=== PATIENT | male | born 1960 | race Caucasian/White ===

== ENCOUNTER → 2016-08-19 | Outpatient (REF) | payer MEDICARE, OTHER ==
[2016-08-19 18:59] LABS: ALBUMIN 3.1 GM/DL (3.2-5.2); ALBUMIN/GLOBULIN RATIO 0.82 (1.00-1.93); ALKALINE PHOSPHATASE 66 U/L (45-117); ALT/SGPT 38 U/L (12-78); ANION GAP 9 MEQ/L (8-16); AST/SGOT 35 U/L (15-37); BILIRUBIN,TOTAL 0.5 MG/DL (0.2-1.0); BLOOD UREA NITROGEN 6 MG/DL (7-18); CALCIUM LEVEL 8.4 MG/DL (8.5-10.1); CARBON DIOXIDE LEVEL 29 MEQ/L (21-32); CHLORIDE LEVEL 99 MEQ/L (98-107); CHOLESTEROL LEVEL 147 MG/DL (<200); CREATININE FOR GFR 0.96 MG/DL (0.70-1.30); GLOMERULAR FILTRATION RATE > 60.0 (>56); GLUCOSE, FASTING 172 MG/DL (70-105); POTASSIUM SERUM 3.9 MEQ/L (3.5-5.1); SODIUM LEVEL 137 MEQ/L (136-145); TOTAL PROTEIN 6.9 GM/DL (6.4-8.2); TRIGLYCERIDES LEVEL 417 MG/DL (<150)
== END ==
LOC: M LAB REF 16:46
PROVIDERS: ATTEND Family Medicine Addiction Medicine
DX: M25.561 Pain in right knee (principal); Z79.899 Other long term (current) drug therapy

== ENCOUNTER → 2016-12-03 | Outpatient (REF) | payer MEDICARE, OTHER ==
[2016-12-03 19:28] LABS: ANION GAP 7 MEQ/L (8-16); BLOOD UREA NITROGEN 8 MG/DL (7-18); CARBON DIOXIDE LEVEL 29 MEQ/L (21-32); CHLORIDE LEVEL 103 MEQ/L (98-107); CHOLESTEROL LEVEL 155 MG/DL (<200); CREATININE FOR GFR 1.03 MG/DL (0.70-1.30); GLOMERULAR FILTRATION RATE > 60.0 (>56); GLUCOSE, FASTING 125 MG/DL (70-105); POTASSIUM SERUM 4.5 MEQ/L (3.5-5.1); SODIUM LEVEL 139 MEQ/L (136-145); TRIGLYCERIDES LEVEL 258 MG/DL (<150)
[2016-12-03 20:30] LABS: BASO % 0.7 % (0.0-1.0); EOS # 0.3 K/mm3 (0.0-0.50); EOS % 5.4 % (0.0-3.0); LARGE UNSTAINED CELL # 0.1 K/mm3 (0.0-0.4); LARGE UNSTAINED CELL % 2.5 % (0.0-4.0); LYMPH # 1.4 K/mm3 (1.5-4.5); MEAN CORPUSCULAR HGB CONC 33.4 g/dl (32.0-36.5); MEAN CORPUSCULAR VOLUME 89.6 fl (80.0-96.0); MONO # 0.5 K/mm3 (0.0-0.8); MONO % 8.5 % (0.0-5.0); PLATELET COUNT, AUTOMATED 125 k/mm3 (150-450); RED CELL DISTRIBUTION WIDTH 13.9 % (11.5-14.5); WHITE BLOOD COUNT 5.3 K/mm3 (4.0-10.0)
== END ==
LOC: M LAB REF 17:20
PROVIDERS: ATTEND Internal Medicine Cardiovascular Disease
DX: Z01.818 Encounter for other preprocedural examination (principal); I48.91 Unspecified atrial fibrillation; I10 Essential (primary) hypertension

== ENCOUNTER → 2016-12-18 | Outpatient (REF) | payer MEDICARE, OTHER ==
[2016-12-19 13:21] LABS: ANION GAP 8 MEQ/L (8-16); BLOOD UREA NITROGEN 8 MG/DL (7-18); CALCIUM LEVEL 9.1 MG/DL (8.5-10.1); CARBON DIOXIDE LEVEL 30 MEQ/L (21-32); CHLORIDE LEVEL 102 MEQ/L (98-107); CREATININE FOR GFR 1.15 MG/DL (0.70-1.30); GLOMERULAR FILTRATION RATE > 60.0 (>56); GLUCOSE, FASTING 201 MG/DL (70-105); POTASSIUM SERUM 4.6 MEQ/L (3.5-5.1); SODIUM LEVEL 140 MEQ/L (136-145)
[2016-12-19 13:58] LABS: ADD MANUAL DIFFER YES; MEAN CORPUSCULAR HGB CONC 33.3 g/dl (32.0-36.5); PLATELET COUNT, AUTOMATED 147 k/mm3 (150-450)
[2016-12-19 14:48] LABS: BASOPHILS 4 % (0-4); EOSINOPHILS 10 % (0-5)
[2016-12-19 14:49] LABS: ANISOCYTOSIS 1+
== END ==
LOC: M LAB REF 12:13
PROVIDERS: ATTEND Internal Medicine Cardiovascular Disease
DX: Z01.818 Encounter for other preprocedural examination (principal); R07.89 Other chest pain

== ENCOUNTER → 2016-12-30 | Outpatient (CLI) | payer MEDICARE, BC, OTHER ==
--- NOTE | 2016-12-30 14:34 | REP ---
Ultrasonography of the palpable lump in the upper right thigh: Ultrasonography of the palpable lump in the upper right thigh is performed. There are normal appearing soft tissues. There is no nodule, mass, cyst, foreign body or other abnormality identified by ultrasound. Impression: Negative right thigh ultrasound. Signed by Dmitri Benson MD 12/30/2016 02:25 P
== END ==
LOC: M RAD 13:34
PROVIDERS: ATTEND Family Medicine Addiction Medicine
DX: R22.9 Localized swelling, mass and lump, unspecified (principal)

== ENCOUNTER → 2017-06-01 | Outpatient (REF) | payer MEDICARE, BC, OTHER ==
[2017-06-01 12:57] LABS: ALBUMIN 3.1 GM/DL (3.2-5.2); ALBUMIN/GLOBULIN RATIO 0.79 (1.00-1.93); ALKALINE PHOSPHATASE 69 U/L (45-117); ALT/SGPT 20 U/L (12-78); ANION GAP 5 MEQ/L (8-16); AST/SGOT 15 U/L (7-37); BILIRUBIN,TOTAL 0.6 MG/DL (0.2-1.0); BLOOD UREA NITROGEN 11 MG/DL (7-18); CALCIUM LEVEL 8.5 MG/DL (8.5-10.1); CARBON DIOXIDE LEVEL 32 MEQ/L (21-32); CHLORIDE LEVEL 104 MEQ/L (98-107); CHOLESTEROL LEVEL 140 MG/DL (<200); CHOLESTEROL RISK RATIO 4.375 (<5); CREATININE FOR GFR 1.02 MG/DL (0.70-1.30); GLOMERULAR FILTRATION RATE > 60.0 (>56); GLUCOSE, FASTING 98 MG/DL (70-105); HDL CHOLESTEROL 32 MG/DL (>40); NON-HDL-C 108 MG/DL; POTASSIUM SERUM 4.3 MEQ/L (3.5-5.1); SODIUM LEVEL 141 MEQ/L (136-145); TRIGLYCERIDES LEVEL 240 MG/DL (<150)
[2017-06-01 15:02] LABS: ESTIMATED AVERAGE GLUCOSE 151 MG/DL (60-110); HEMOGLOBIN A1c 6.9 %
== END ==
LOC: M LAB REF 12:00
DX: E78.1 Pure hyperglyceridemia (principal)
CPT/HCPCS: 84443

== ENCOUNTER 2017-10-29 11:12 | Emergency (ER) | payer MEDICARE, BC, OTHER ==
[2017-10-29] MEDS: CEFTAROLINE FOSAMIL 600 MG in D5W MINI-BAG PLUS 50 ML IV (13:48)
[2017-10-29 13:52] LABS: BASO % 0.5 % (0.0-1.0); EOS # 0.3 10^3/uL (0.0-0.50); EOS % 3.5 % (0.0-3.0); HEMATOCRIT 32.4 % (42.0-52.0); HEMOGLOBIN 10.8 g/dl (13.5-17.5); IMMATURE GRANULOCYTE % 0.6 % (0-3.0); LYMPH # 1.4 10^3/uL (1.5-4.5); MEAN CORPUSCULAR HEMOGLOBIN 28.6 pg (27.0-33.0); MEAN CORPUSCULAR HGB CONC 33.3 g/dl (32.0-36.5); MEAN CORPUSCULAR VOLUME 85.9 fl (80.0-96.0); MONO % 12.5 % (0.0-5.0); NEUTROPHILS # 5.3 10^3/uL (1.8-7.7); NEUTROPHILS % 65.9 % (36.0-66.0); PLATELET COUNT, AUTOMATED 156 10^3/uL (150-450); RED BLOOD COUNT 3.77 10^6/uL (4.30-6.10); RED CELL DISTRIBUTION WIDTH 14.6 % (11.5-14.5)
[2017-10-29 13:53] LABS: KETONE, URINE AUTO RFX NEGATIVE (NEGATIVE); LEUKOCYTE ESTERASE UR AUTO RFX NEGATIVE (NEGATIVE); NITRITE, URINE AUTO RFX NEGATIVE (NEGATIVE); RBC, URINE AUTO RFX 0 /HPF (0-3); SPECIFIC GRAVITY UR AUTO RFX 1.003 (1.002-1.035); SQUAM EPITHELIAL CELL UR AURFX 0 /HPF (0-6); WBC, URINE AUTO RFX 0 /HPF (0-3)
[2017-10-29 14:12] LABS: LACTIC ACID SEPSIS PROTOCOL 1.6 MMOL/L (0.4-2.0)
[2017-10-29 14:21] LABS: ERYTHROCYTE SEDIMENTATION RATE 85 mm/hr (0-20)
[2017-10-29 14:22] LABS: ANION GAP 5 MEQ/L (8-16); BLOOD UREA NITROGEN 7 MG/DL (7-18); C REACTIVE PROTEIN QUANTITATIV 7.63 MG/DL (0.00-0.30); CALCIUM LEVEL 8.4 MG/DL (8.5-10.1); CARBON DIOXIDE LEVEL 30 MEQ/L (21-32); CHLORIDE LEVEL 104 MEQ/L (98-107); CREATININE FOR GFR 1.01 MG/DL (0.70-1.30); GLOMERULAR FILTRATION RATE > 60.0 (>56); GLUCOSE, FASTING 183 MG/DL (70-100); SODIUM LEVEL 139 MEQ/L (136-145)
[2017-10-29 15:13] LABS: ESTIMATED AVERAGE GLUCOSE 146 MG/DL (60-110); HEMOGLOBIN A1c 6.7 %
== END 2017-10-29 15:49 | disposition home or self-care (01) ==
LOC: M ED 11:12
DX: L03.116 Cellulitis of left lower limb (principal); E11.9 Type 2 diabetes mellitus without complications; I48.91 Unspecified atrial fibrillation; G47.33 Obstructive sleep apnea (adult) (pediatric); Z98.890 Other specified postprocedural states; Z79.01 Long term (current) use of anticoagulants; Z87.891 Personal history of nicotine dependence; Z79.899 Other long term (current) drug therapy
CPT/HCPCS: J0712

== ENCOUNTER → 2017-11-03 | Outpatient (CLI) | payer MEDICARE, BC, OTHER ==
[~2017-11-03] MED LIST: PROHANCE 279.3MG/ML 15ML VIAL (A9576) As Ordered; PROHANCE 279.3MG/ML 5ML VIAL (A9576) As Ordered
== END ==
LOC: M RAD 16:34
DX: E13.622 Other specified diabetes mellitus with other skin ulcer (principal)
CPT/HCPCS: A9576

== ENCOUNTER → 2017-12-28 | Outpatient (CLI) | payer MEDICARE, BC, OTHER | LOC: M RAD 07:46 | DX: L97.422 Non-pressure chronic ulcer of left heel and midfoot with fat layer exposed (principal) | CPT/HCPCS: 93926 ==

== ENCOUNTER → 2018-09-03 | Outpatient (CLI) | payer MEDICARE, BC, OTHER ==
[~2018-09-03] MED LIST changes: +ALPR0.25; +AMIT100TA; +CART240C3; +CEFD1CAP8; +CLEO300C2 PO; +DIGO0.25; +FENO145T13; +FURO40TA2; +GLIM4TAB; +JANU100T; +METF10004; +METO100T5; +OMEP20CA3; +PRAD150C6; -PROHANCE 279.3MG/ML 15ML VIAL (A9576) As Ordered; -PROHANCE 279.3MG/ML 5ML VIAL (A9576) As Ordered
--- NOTE | 2018-09-03 19:12 | REP ---
Soft-tissue ultrasound of the anterior chest. History: Congenital deformity of the chest. Palpable abnormality. Findings: Scanning is performed over the area of the palpable abnormality in the lower chest anterior midline. The palpable abnormality is seen to be due to a prominent xyphoid process cartilage which is anteriorly oriented. No other abnormality. Electronically Signed by Andrez Nguyễn MD 09/03/2018 08:16 P
== END ==
LOC: M RAD 16:43
PROVIDERS: ATTEND Surgery
DX: Q67.8 Other congenital deformities of chest (principal)

== ENCOUNTER → 2019-05-09 | Outpatient (REF) | payer MEDICARE, OTHER ==
[~2019-05-09] MED LIST changes: -DIGO0.25; +DIGO0.253; -GLIM4TAB; +GLIM4TAB3; +OMEP-172; -OMEP20CA3
[2019-05-09 18:45] LABS: BASO # 0.1 10^3/uL (0.0-0.2); BASO % 0.6 % (0.0-1.0); EOS # 0.4 10^3/uL (0.0-0.5); EOS % 4.4 % (0.0-3.0); HEMATOCRIT 35.1 % (42.0-52.0); HEMOGLOBIN 11.4 g/dl (13.5-17.5); LYMPH % 22.5 % (24.0-44.0); MEAN CORPUSCULAR HEMOGLOBIN 28.5 pg (27.0-33.0); MEAN CORPUSCULAR HGB CONC 32.5 g/dl (32.0-36.5); MEAN CORPUSCULAR VOLUME 87.8 fl (80.0-96.0); MONO # 0.7 10^3/uL (0.0-0.8); MONO % 7.6 % (0.0-5.0); NEUTROPHILS # 5.5 10^3/uL (1.5-8.5); NEUTROPHILS % 63.5 % (36.0-66.0); PLATELET COUNT, AUTOMATED 208 10^3/uL (150-450); WHITE BLOOD COUNT 8.7 10^3/uL (4.0-10.0)
[2019-05-09 19:10] LABS: HEMOGLOBIN A1c 5.8 %
[2019-05-09 19:19] LABS: BILIRUBIN,TOTAL 0.3 MG/DL (0.2-1.0); CALCIUM LEVEL 8.8 MG/DL (8.5-10.1); CHOLESTEROL RISK RATIO 4.702 (<5); CREATININE FOR GFR 1.35 MG/DL (0.70-1.30); FREE T4 0.93 NG/DL (0.76-1.46); POTASSIUM SERUM 4.6 MEQ/L (3.5-5.1); THYROID STIMULATING HORMONE 3.91 uIU/ML (0.358-3.740); TOTAL PROTEIN 7.4 GM/DL (6.4-8.2)
== END ==
LOC: M LAB REF 18:08
PROVIDERS: ATTEND Nurse Practitioner Family
DX: Z00.01 Encounter for general adult medical examination with abnormal findings (principal); Z79.84 Long term (current) use of oral hypoglycemic drugs; Z79.899 Other long term (current) drug therapy

== ENCOUNTER → 2019-12-07 | Outpatient (REF) | payer MEDICARE, OTHER ==
[~2019-12-07] MED LIST changes: -FENO145T13; +FENO145T7; -GLIM4TAB3; +GLIM4TAB5; -OMEP-172; +OMEP1CAP73
[2019-12-07 17:25] LABS: BASO % 0.7 % (0.0-1.0); EOS # 0.3 10^3/uL (0.0-0.5); HEMOGLOBIN 10.7 g/dl (13.5-17.5); LYMPH # 1.5 10^3/uL (1.5-5.0); LYMPH % 26.5 % (24.0-44.0); MEAN CORPUSCULAR HEMOGLOBIN 28.2 pg (27.0-33.0); MEAN CORPUSCULAR HGB CONC 31.5 g/dl (32.0-36.5); MEAN CORPUSCULAR VOLUME 89.7 fl (80.0-96.0); MONO # 0.7 10^3/uL (0.0-0.8); MONO % 11.6 % (0.0-5.0); NEUTROPHILS # 3.1 10^3/uL (1.5-8.5); NEUTROPHILS % 54.7 % (36.0-66.0); PLATELET COUNT, AUTOMATED 177 10^3/uL (150-450); RED BLOOD COUNT 3.79 10^6/uL (4.30-6.10); WHITE BLOOD COUNT 5.7 10^3/uL (4.0-10.0)
[2019-12-07 17:43] LABS: ALBUMIN 3.1 GM/DL (3.2-5.2); ALT/SGPT 13 U/L (12-78); BILIRUBIN,TOTAL 0.4 MG/DL (0.2-1.0); BLOOD UREA NITROGEN 13 MG/DL (7-18); CALCIUM LEVEL 8.9 MG/DL (8.5-10.1); CARBON DIOXIDE LEVEL 30 MEQ/L (21-32); CHLORIDE LEVEL 105 MEQ/L (98-107); CHOLESTEROL LEVEL 152 MG/DL (<200); CHOLESTEROL RISK RATIO 5.066 (<5); CREATININE FOR GFR 1.25 MG/DL (0.70-1.30); FREE T4 1.16 NG/DL (0.76-1.46); GLOMERULAR FILTRATION RATE > 60.0 (>56); GLUCOSE, FASTING 174 MG/DL (70-100); HDL CHOLESTEROL 30 MG/DL (>40); LDL CHOLESTEROL 78 MG/DL (<100); NON-HDL-C 122 MG/DL; SODIUM LEVEL 142 MEQ/L (136-145); TOTAL 25(OH) VITAMIN D 33.3 NG/ML (30.0-100.0); TOTAL PROTEIN 7.1 GM/DL (6.4-8.2); TRIGLYCERIDES LEVEL 220 MG/DL (<150)
[2019-12-07 18:55] LABS: APPEARANCE, URINE CLEAR (CLEAR); BACTERIA, URINE AUTO NEGATIVE (NEGATIVE); BILIRUBIN, URINE AUTO NEGATIVE (NEGATIVE); BLOOD, URINE BLOOD NEGATIVE (NEGATIVE); COLOR, URINE YELLOW (YELLOW); GLUCOSE, URINE (UA) AUTO NEGATIVE (NEGATIVE); KETONE, URINE AUTO NEGATIVE (NEGATIVE); LEUKOCYTE ESTERASE, URINE AUTO NEGATIVE (NEGATIVE); MUCUS, URINE SMALL (NEGATIVE); NITRITE, URINE AUTO NEGATIVE (NEGATIVE); PROTEIN, URINE AUTO 2+ mg/dL (NEGATIVE); RBC, URINE AUTO 2 /HPF (0-3); SPECIFIC GRAVITY URINE AUTO 1.016 (1.002-1.035); SQUAMOUS EPITHELIAL CELL UR AU 0 /HPF (0-6); UROBILINOGEN, URINE AUTO 0.2 mg/dL (0.0-2.0); WBC, URINE AUTO 0 /HPF (0-3)
[2019-12-07 20:07] LABS: HEMOGLOBIN A1c 5.5 %
== END ==
LOC: M LAB REF 16:21
PROVIDERS: ATTEND Nurse Practitioner Family
DX: K21.9 Gastro-esophageal reflux disease without esophagitis (principal); E11.9 Type 2 diabetes mellitus without complications; G47.00 Insomnia, unspecified; I11.0 Hypertensive heart disease with heart failure; I48.91 Unspecified atrial fibrillation; I50.9 Heart failure, unspecified; Z79.899 Other long term (current) drug therapy

== ENCOUNTER → 2019-12-14 | Outpatient (REF) | payer MEDICARE, OTHER ==
[2019-12-15 11:04] LABS: APPEARANCE, URINE CLEAR (CLEAR); BACTERIA, URINE AUTO NEGATIVE (NEGATIVE); BILIRUBIN, URINE AUTO NEGATIVE (NEGATIVE); BLOOD, URINE BLOOD NEGATIVE (NEGATIVE); COLOR, URINE YELLOW (YELLOW); GLUCOSE, URINE (UA) AUTO NEGATIVE (NEGATIVE); KETONE, URINE AUTO NEGATIVE (NEGATIVE); LEUKOCYTE ESTERASE, URINE AUTO NEGATIVE (NEGATIVE); NITRITE, URINE AUTO NEGATIVE (NEGATIVE); PROTEIN, URINE AUTO 2+ mg/dL (NEGATIVE); RBC, URINE AUTO 1 /HPF (0-3); SQUAMOUS EPITHELIAL CELL UR AU 0 /HPF (0-6); UROBILINOGEN, URINE AUTO 0.2 mg/dL (0.0-2.0); WBC, URINE AUTO 0 /HPF (0-3)
== END ==
LOC: M LAB REF 09:27
PROVIDERS: ATTEND Nurse Practitioner Family
DX: R80.9 Proteinuria, unspecified (principal); E11.9 Type 2 diabetes mellitus without complications; I10 Essential (primary) hypertension

== ENCOUNTER → 2020-07-05 | Outpatient (REF) | payer MEDICARE, OTHER ==
[2020-07-05 19:31] LABS: BASO # 0.1 10^3/uL (0.0-0.2); BASO % 0.7 % (0.0-1.0); EOS # 0.5 10^3/uL (0.0-0.5); EOS % 6.2 % (0.0-3.0); HEMATOCRIT 32.1 % (42.0-52.0); HEMOGLOBIN 10.1 g/dl (13.5-17.5); LYMPH # 1.2 10^3/uL (1.5-5.0); LYMPH % 15.6 % (24.0-44.0); MEAN CORPUSCULAR HEMOGLOBIN 27.8 pg (27.0-33.0); MEAN CORPUSCULAR HGB CONC 31.5 g/dl (32.0-36.5); MEAN CORPUSCULAR VOLUME 88.4 fl (80.0-96.0); MONO # 0.7 10^3/uL (0.0-0.8); NEUTROPHILS # 5.1 10^3/uL (1.5-8.5); PLATELET COUNT, AUTOMATED 157 10^3/uL (150-450); RED BLOOD COUNT 3.63 10^6/uL (4.30-6.10); WHITE BLOOD COUNT 7.5 10^3/uL (4.0-10.0)
[2020-07-05 19:41] LABS: ALBUMIN 2.9 GM/DL (3.2-5.2); ALT/SGPT 14 U/L (12-78); BILIRUBIN,TOTAL 0.5 MG/DL (0.2-1.0); BLOOD UREA NITROGEN 10 MG/DL (7-18); CALCIUM LEVEL 8.3 MG/DL (8.5-10.1); CARBON DIOXIDE LEVEL 31 MEQ/L (21-32); CHLORIDE LEVEL 107 MEQ/L (98-107); CHOLESTEROL LEVEL 157 MG/DL (<200); CHOLESTEROL RISK RATIO 4.025 (<5); CREATININE FOR GFR 1.19 MG/DL (0.70-1.30); FREE T4 0.99 NG/DL (0.76-1.46); GLOMERULAR FILTRATION RATE > 60.0 (>56); GLUCOSE, FASTING 82 MG/DL (70-100); HDL CHOLESTEROL 39 MG/DL (>40); LDL CHOLESTEROL 98 MG/DL (<100); NON-HDL-C 118 MG/DL; POTASSIUM SERUM 4.9 MEQ/L (3.5-5.1); SODIUM LEVEL 144 MEQ/L (136-145); TOTAL PROTEIN 6.4 GM/DL (6.4-8.2); TRIGLYCERIDES LEVEL 100 MG/DL (<150)
[2020-07-05 21:09] LABS: TOTAL 25(OH) VITAMIN D 47.9 NG/ML (30.0-100.0)
[2020-07-05 21:29] LABS: HEMOGLOBIN A1c 5.1 %
[2020-07-09 15:07] LABS: PSA TOTAL 0.2 ng/mL (0.0-4.0)
== END ==
LOC: M LAB REF 16:18
PROVIDERS: ATTEND Nurse Practitioner Family
DX: D64.9 Anemia, unspecified (principal); I10 Essential (primary) hypertension; E66.9 Obesity, unspecified; Z79.899 Other long term (current) drug therapy; R97.20 Elevated prostate specific antigen [PSA]

== ENCOUNTER → 2021-04-03 | Outpatient (REF) | payer MEDICARE, OTHER ==
[2021-04-04 11:43] LABS: BASO # 0.1 10^3/uL (0.0-0.2); BASO % 0.9 % (0.0-1.0); EOS # 0.5 10^3/uL (0.0-0.5); EOS % 6.3 % (0.0-3.0); HEMATOCRIT 34.4 % (42.0-52.0); HEMOGLOBIN 10.9 g/dl (13.5-17.5); LYMPH % 12.5 % (24.0-44.0); MEAN CORPUSCULAR HEMOGLOBIN 29.2 pg (27.0-33.0); MEAN CORPUSCULAR HGB CONC 31.7 g/dl (32.0-36.5); MEAN CORPUSCULAR VOLUME 92.2 fl (80.0-96.0); MONO # 0.8 10^3/uL (0.0-0.8); MONO % 10.5 % (2.0-8.0); NEUTROPHILS # 5.5 10^3/uL (1.5-8.5); NEUTROPHILS % 69.4 % (36.0-66.0); PLATELET COUNT, AUTOMATED 177 10^3/uL (150-450); RED BLOOD COUNT 3.73 10^6/uL (4.30-6.10); WHITE BLOOD COUNT 7.9 10^3/uL (4.0-10.0)
[2021-04-04 12:09] LABS: BLOOD UREA NITROGEN 15 MG/DL (7-18); CALCIUM LEVEL 9.5 MG/DL (8.5-10.1); CARBON DIOXIDE LEVEL 31 MEQ/L (21-32); CHLORIDE LEVEL 104 MEQ/L (98-107); CREATININE FOR GFR 1.27 MG/DL (0.70-1.30); GLOMERULAR FILTRATION RATE > 60.0 (>56); GLUCOSE, FASTING 96 MG/DL (70-100); POTASSIUM SERUM 4.6 MEQ/L (3.5-5.1); SODIUM LEVEL 140 MEQ/L (136-145)
== END ==
LOC: M LABDRAWC 11:13
PROVIDERS: ATTEND Internal Medicine Cardiovascular Disease
DX: I48.91 Unspecified atrial fibrillation (principal); I10 Essential (primary) hypertension

== ENCOUNTER 2021-06-23 16:53 | Emergency (ER) | payer MEDICARE, OTHER ==
[~2021-06-23 16:53] MED LIST changes: -CEFD1CAP8; +CEFD300C41
[2021-06-23] MEDS ORDERED: NS 1,000 ML IV ONE ×3 (17:30→20:30)
[2021-06-23 17:38] LABS: BASO % 0.6 % (0.0-1.0); EOS # 0.3 10^3/uL (0.0-0.5); EOS % 3.9 % (0.0-3.0); HEMATOCRIT 33.6 % (42.0-52.0); HEMOGLOBIN 10.8 g/dl (13.5-17.5); LYMPH # 1.6 10^3/uL (1.5-5.0); LYMPH % 22.9 % (24.0-44.0); MEAN CORPUSCULAR HGB CONC 32.1 g/dl (32.0-36.5); MEAN CORPUSCULAR VOLUME 90.1 fl (80.0-96.0); MONO # 0.5 10^3/uL (0.0-0.8); MONO % 6.6 % (2.0-8.0); NEUTROPHILS # 4.7 10^3/uL (1.5-8.5); NEUTROPHILS % 65.4 % (36.0-66.0); PLATELET COUNT, AUTOMATED 187 10^3/uL (150-450); RED BLOOD COUNT 3.73 10^6/uL (4.30-6.10); WHITE BLOOD COUNT 7.1 10^3/uL (4.0-10.0)
[2021-06-23 17:51] LABS: OSMOLALITY SERUM 363 MOSM/KG (275-295)
[2021-06-23] MEDS ORDERED: FURO40TA2 PO (18:00)
[2021-06-23] MEDS ORDERED: JANU100T PO (18:00)
[2021-06-23] MEDS ORDERED: METF-877 PO (18:00)
[2021-06-23] MEDS ORDERED: OMEP-173 PO (18:00)
[2021-06-23] MEDS ORDERED: DILT240C83 PO (18:00)
[2021-06-23] MEDS ORDERED: ELIQ5TAB PO (18:00)
[2021-06-23] MEDS ORDERED: ENAL-36 PO (18:00)
[2021-06-23] MEDS ORDERED: AMIT150T PO (18:00)
[2021-06-23 18:04] LABS: ACETAMINOPHEN LEVEL < 2.0 UG/ML (10.0-30.0); ALBUMIN 2.8 GM/DL (3.2-5.2); ALT/SGPT 17 U/L (12-78); BILIRUBIN,DIRECT 0.1 MG/DL (0.0-0.2); BILIRUBIN,TOTAL 0.1 MG/DL (0.2-1.0); BLOOD UREA NITROGEN 12 MG/DL (7-18); CALCIUM LEVEL 8.2 MG/DL (8.5-10.1); CARBON DIOXIDE LEVEL 24 MEQ/L (21-32); CHLORIDE LEVEL 106 MEQ/L (98-107); CREATININE FOR GFR 1.26 MG/DL (0.70-1.30); ETHYL ALCOHOL (ETHANOL) 0.363 % (0.000-0.010); GLOMERULAR FILTRATION RATE > 60.0 (>56); GLUCOSE, FASTING 119 MG/DL (70-100); POTASSIUM SERUM 3.6 MEQ/L (3.5-5.1); SALICYLATE LEVEL < 1.7 MG/DL (5.0-30.0); SODIUM LEVEL 138 MEQ/L (136-145)
[2021-06-23 18:45] LABS: VENOUS BASE EXCESS -7.4 (-2.0-2.0); VENOUS HCO3 20.3 MEQ/L (23.0-27.0); VENOUS O2 SATURATION 59.5 % (60.0-80.0); VENOUS PARTIAL PRESSURE CO2 50.6 mmHg (38.0-50.0); VENOUS PARTIAL PRESSURE O2 37.3 mmHg (30.0-50.0); VENOUS PH 7.222 UNITS (7.330-7.430); VENOUS STANDARD HCO3 17.8 MEQ/L; VENOUS TOTAL CO2 21.9 MEQ/L (24.0-28.0)
[2021-06-23 19:10] LABS: ABG BASE EXCESS -4.4 (-2.0-2.0); ABG HCO3 21.3 MEQ/L (22.0-26.0); ABG O2 SATURATION 87.5 % (95.0-99.0); ABG PARTIAL PRESSURE CO2 41.5 mmHg (35.0-45.0); ABG STANDARD HCO3 20.6 MEQ/L (22.0-26.0); ABG TOTAL CO2 22.6 MEQ/L (22.0-29.0); ABG pH (ARTERIAL) 7.328 UNITS (7.350-7.450)
[2021-06-23 19:21] LABS: MAGNESIUM LEVEL 2.3 MG/DL (1.8-2.4)
[2021-06-23 20:54] LABS: AMPHETAMINES LEVEL URINE NEGATIVE (NEGATIVE); BARBITURATES URINE NEGATIVE (NEGATIVE); BENZODIAZEPINES URINE POSITIVE (NEGATIVE); CANNABINOIDS URINE POSITIVE (NEGATIVE); COCAINE METABOLITE URINE NEGATIVE (NEGATIVE); METHADONE URINE NEGATIVE (NEGATIVE); OPIATES URINE NEGATIVE (NEGATIVE); PHENCYCLIDINE URINE NEGATIVE (NEGATIVE)
[2021-06-23 23:30] VITALS: BP 153/70
== END 2021-06-23 23:49 | disposition home or self-care (01) ==
LOC: M ED 16:53
DX: I48.91 Unspecified atrial fibrillation (principal); S00.83XA Contusion of other part of head, initial encounter; F10.129 Alcohol abuse with intoxication, unspecified; F19.90 Other psychoactive substance use, unspecified, uncomplicated; W19.XXXA Unspecified fall, initial encounter; Y92.009 Unspecified place in unspecified non-institutional (private) residence as the place of occurrence of the external cause; Y93.9 Activity, unspecified; Y99.9 Unspecified external cause status; E11.9 Type 2 diabetes mellitus without complications; I10 Essential (primary) hypertension; G47.33 Obstructive sleep apnea (adult) (pediatric); F17.200 Nicotine dependence, unspecified, uncomplicated; I51.7 Cardiomegaly; Z79.899 Other long term (current) drug therapy

== ENCOUNTER 2021-07-24 19:19 | Inpatient (IN) | payer MEDICARE, OTHER ==
[~2021-07-24] VITALS: Ht 185.4 cm; Wt 130.0 kg
[~2021-07-24 19:19] MED LIST changes: +AMIT150T PO; +DILT240C83 PO; +ELIQ5TAB PO; +ENAL-36 PO; +FURO40TA2 PO; +JANU100T PO; +METF-877 PO; +OMEP-173 PO
[2021-07-24] MEDS ORDERED: ACETAMINOPHEN TAB 650MG DOSE (2X325MG) PO ONE (19:45)
[2021-07-24] MEDS ORDERED: METOPROLOL TART 25 MG TABLET PO ONE (19:45)
[2021-07-24] MEDS ORDERED: NS 1,000 ML IV ONE (19:45)
[2021-07-24] MEDS: METOPROLOL 5 MG/5 ML VIAL IV SCH ×3 (20:05→21:03)
[2021-07-24 20:27] LABS: ABG BASE EXCESS -1.6 (-2.0-2.0); ABG HCO3 20.9 MEQ/L (22.0-26.0); ABG O2 SATURATION 93.2 % (95.0-99.0); ABG PARTIAL PRESSURE CO2 27.5 mmHg (35.0-45.0); ABG PARTIAL PRESSURE O2 68.5 mmHg (75.0-100.0); ABG STANDARD HCO3 23.1 MEQ/L (22.0-26.0); ABG TOTAL CO2 21.7 MEQ/L (22.0-29.0); ABG pH (ARTERIAL) 7.498 UNITS (7.350-7.450)
[2021-07-24 20:32] LABS: BASO % 0.1 % (0.0-1.0); EOS % 0.1 % (0.0-3.0); HEMATOCRIT 29.1 % (42.0-52.0); HEMOGLOBIN 9.5 g/dl (13.5-17.5); LYMPH # 0.4 10^3/uL (1.5-5.0); LYMPH % 2.4 % (24.0-44.0); MEAN CORPUSCULAR HEMOGLOBIN 28.7 pg (27.0-33.0); MEAN CORPUSCULAR HGB CONC 32.6 g/dl (32.0-36.5); MEAN CORPUSCULAR VOLUME 87.9 fl (80.0-96.0); MONO # 0.9 10^3/uL (0.0-0.8); MONO % 5.6 % (2.0-8.0); NEUTROPHILS # 14.1 10^3/uL (1.5-8.5); NEUTROPHILS % 90.8 % (36.0-66.0); PLATELET COUNT, AUTOMATED 188 10^3/uL (150-450); RED BLOOD COUNT 3.31 10^6/uL (4.30-6.10); WHITE BLOOD COUNT 15.5 10^3/uL (4.0-10.0)
[2021-07-24] MEDS ORDERED: DILT1CAP6 PO (20:37)
[2021-07-24] MEDS ORDERED: JANU100T PO (20:37)
[2021-07-24] MEDS ORDERED: ENAL-36 PO (20:37)
[2021-07-24] MEDS ORDERED: GLIM4TAB5 PO (20:37)
[2021-07-24] MEDS ORDERED: FURO40TA2 PO (20:37)
[2021-07-24] MEDS ORDERED: OMEP-173 PO (20:37)
[2021-07-24] MEDS ORDERED: METF-877 PO (20:37)
[2021-07-24] MEDS ORDERED: AMIT150T PO (20:37)
[2021-07-24] MEDS ORDERED: ELIQ5TAB PO (20:37)
[2021-07-24] MEDS ORDERED: HOME MED LIST COMPLETE! XX SCH (20:40)
[2021-07-24 20:52] LABS: CK-MB VALUE MASS < 1.0 NG/ML (<3.6); CPK CREATINE PHOSPHOKINASE 54 U/L (39-308); MB/CK RELATIVE INDEX 1.85 (< OR =4)
[2021-07-24 20:55] LABS: ALBUMIN 2.3 GM/DL (3.2-5.2); ALT/SGPT 20 U/L (12-78); BILIRUBIN,DIRECT 0.4 MG/DL (0.0-0.2); BILIRUBIN,TOTAL 0.9 MG/DL (0.2-1.0); BLOOD UREA NITROGEN 22 MG/DL (7-18); CALCIUM LEVEL 8.1 MG/DL (8.5-10.1); CARBON DIOXIDE LEVEL 23 MEQ/L (21-32); CHLORIDE LEVEL 103 MEQ/L (98-107); CREATININE FOR GFR 1.15 MG/DL (0.70-1.30); GLOMERULAR FILTRATION RATE > 60.0 (>56); GLUCOSE, FASTING 118 MG/DL (70-100); NT-PRO BNP 12250 PG/ML (<125); POTASSIUM SERUM 3.7 MEQ/L (3.5-5.1); SODIUM LEVEL 137 MEQ/L (136-145); TOTAL PROTEIN 6.2 GM/DL (6.4-8.2)
[2021-07-24 22:03] LABS: CK-MB VALUE MASS < 1.0 NG/ML (<3.6); CPK CREATINE PHOSPHOKINASE 62 U/L (39-308); MB/CK RELATIVE INDEX 1.61 (< OR =4)
[2021-07-24] MEDS ORDERED: FUROSEMIDE 100MG/10ML VIAL (J1940) IV ONE (22:15)
[2021-07-24] MEDS: IPRATROPIUM 0.5MG/ALBUTEROL 2.5MG INH SOL UD 3ML (DUONEB) NEB SCH (22:36)
[2021-07-24] MEDS ORDERED: ISOVUE-370 76% 100ML VIAL As Ordered ONE (23:07)
[2021-07-25] VITALS (23 sets, daily range): BP systolic 143–187; BP diastolic 82–115
[2021-07-25] MEDS ORDERED: ACETAMINOPHEN TAB 650MG DOSE (2X325MG) PO PRN (02:40)
[2021-07-25] MEDS ORDERED: MAALOX 30 ML SUSP *UDC PO PRN (02:40)
[2021-07-25] MEDS ORDERED: GLUCAGON INJ 1MG VIAL SC PRN (03:00)
[2021-07-25] MEDS ORDERED: VANCOMYCIN HCL 1,000 MG, VIAL MATE ADAPTER 1 EACH in NS 250 ML IV SCH ×2 (03:00→16:00)
[2021-07-25] MEDS ORDERED: GLUCOSE 4GM CHEW TABLET PO PRN (03:00)
[2021-07-25] MEDS ORDERED: DEXTROSE 50% 50 ML SYRINGE IV PRN (03:00)
[2021-07-25] MEDS: dexameTHASONE 4 MG/ML 1ML VIAL (J1100 PER 1MG) IV SCH ×2 (04:03→08:33)
[2021-07-25 04:24] LABS: ABG BASE EXCESS 0.4 (-2.0-2.0); ABG HCO3 24.1 MEQ/L (22.0-26.0); ABG O2 SATURATION 97.6 % (95.0-99.0); ABG PARTIAL PRESSURE O2 108.2 mmHg (75.0-100.0); ABG STANDARD HCO3 24.8 MEQ/L (22.0-26.0); ABG TOTAL CO2 25.1 MEQ/L (22.0-29.0); ABG pH (ARTERIAL) 7.455 UNITS (7.350-7.450)
[2021-07-25] MEDS ORDERED: REMDESIVIR 200 MG in NS 250 ML IV ONE (05:00)
[2021-07-25 06:45] LABS: BASO % 0.1 % (0.0-1.0); HEMATOCRIT 26.9 % (42.0-52.0); HEMOGLOBIN 8.8 g/dl (13.5-17.5); LYMPH # 0.3 10^3/uL (1.5-5.0); LYMPH % 2.2 % (24.0-44.0); MEAN CORPUSCULAR HEMOGLOBIN 28.9 pg (27.0-33.0); MEAN CORPUSCULAR HGB CONC 32.7 g/dl (32.0-36.5); MEAN CORPUSCULAR VOLUME 88.5 fl (80.0-96.0); MONO # 0.5 10^3/uL (0.0-0.8); MONO % 3.4 % (2.0-8.0); NEUTROPHILS # 12.5 10^3/uL (1.5-8.5); NEUTROPHILS % 93.1 % (36.0-66.0); PLATELET COUNT, AUTOMATED 154 10^3/uL (150-450); RED BLOOD COUNT 3.04 10^6/uL (4.30-6.10); WHITE BLOOD COUNT 13.4 10^3/uL (4.0-10.0)
[2021-07-25 06:57] LABS: FIBRINOGEN 730 MG/DL (268-480); INR 1.22; PROTHROMBIN TIME 15.8 SECONDS (12.7-14.5)
[2021-07-25 06:58] LABS: PARTIAL THROMBOPLASTIN TIME 35.8 SECONDS (25.9-37.0)
[2021-07-25] MEDS ORDERED: CEFEPIME HCL 1 GM in D5W MINI-BAG PLUS 50 ML IV SCH (07:00)
[2021-07-25] MEDS ORDERED: SODIUM CHLORIDE 0.9% INJ 10 ML SYR IV ONE (07:00)
[2021-07-25 07:15] LABS: ALBUMIN 2.1 GM/DL (3.2-5.2); ALT/SGPT 19 U/L (12-78); BILIRUBIN,TOTAL 0.9 MG/DL (0.2-1.0); BLOOD UREA NITROGEN 23 MG/DL (7-18); CARBON DIOXIDE LEVEL 25 MEQ/L (21-32); CHLORIDE LEVEL 104 MEQ/L (98-107); CREATININE FOR GFR 1.18 MG/DL (0.70-1.30); FERRITIN 790 NG/ML (26-388); GLOMERULAR FILTRATION RATE > 60.0 (>56); GLUCOSE, FASTING 246 MG/DL (70-100); LDH LACTATE DEHYDROGENASE 678 U/L (87-241); MAGNESIUM LEVEL 2.3 MG/DL (1.8-2.4); POTASSIUM SERUM 4.5 MEQ/L (3.5-5.1); SODIUM LEVEL 137 MEQ/L (136-145); TOTAL PROTEIN 5.9 GM/DL (6.4-8.2)
[2021-07-25 07:21] LABS: D-DIMER QUANT > 4000 ng/ml (<500)
[2021-07-25] MEDS ORDERED: VANCOMYCIN HCL 1,000 MG, VIAL MATE ADAPTER 1 EACH in NS 250 ML IV ONE ×2 (08:00→09:00)
[2021-07-25] MEDS: BARICITINIB 2MG TABLET (OLUMIANT) FOR EUA PO SCH (08:33)
[2021-07-25] MEDS: PANTOPRAZOLE 40MG VIAL (C9113 PER 1) IV SCH (08:33)
[2021-07-25] MEDS: DOCUSATE SODIUM 100MG CAPSULE PO SCH ×2 (08:34→20:52)
[2021-07-25] MEDS: APIXABAN 5 MG TAB (ELIQUIS) PO SCH ×2 (08:34→20:53)
[2021-07-25] MEDS: ENALAPRIL MALEATE 10 MG TAB PO SCH ×2 (08:34→20:54)
[2021-07-25] MEDS: HumaLOG INSULIN (NovoLOG) PER UNIT SC SCH ×4 (09:03→21:00)
[2021-07-25] MEDS ORDERED: HumaLOG INSULIN (NovoLOG) PER UNIT SC ONE (11:45)
[2021-07-25] MEDS: CEFEPIME HCL 2 GM in D5W MINI-BAG PLUS 50 ML IV SCH ×2 (12:01→18:15)
[2021-07-25] MEDS: LORazepam 2 MG TAB PO PRN ×2 (17:54→21:03)
[2021-07-25] MEDS: FOLIC ACID 1 MG TAB PO SCH (17:55)
[2021-07-25] MEDS: MULTIVITAMINS/MINERALS THERAP 1 TAB PO SCH (17:55)
[2021-07-25] MEDS: THIAMINE 100 MG TAB PO SCH (17:55)
[2021-07-25] MEDS ORDERED: METOPROLOL 5 MG/5 ML VIAL IV STA (18:04)
[2021-07-25] MEDS ORDERED: METOPROLOL TART 25 MG TABLET PO ONE (18:25)
[2021-07-25] MEDS: AMITRIPTYLINE 50 MG TAB PO SCH (20:53)
[2021-07-25] MEDS ORDERED: METOPROLOL TART 50 MG TAB PO SCH (21:00)
[2021-07-25] MEDS: OXAZEPAM 10MG CAP PO SCH (21:11)
[2021-07-26] VITALS (25 sets, daily range): BP systolic 132–157; BP diastolic 67–106; O2SAT 92–93
[2021-07-26] MEDS: CEFEPIME HCL 2 GM in D5W MINI-BAG PLUS 50 ML IV SCH ×3 (02:31→18:27)
[2021-07-26] MEDS: LORazepam 2 MG TAB PO PRN ×2 (04:06→21:46)
[2021-07-26] MEDS: REMDESIVIR 100 MG in NS 250 ML IV SCH (04:51)
[2021-07-26 05:26] LABS: BASO % 0.1 % (0.0-1.0); EOS % 0.1 % (0.0-3.0); HEMATOCRIT 25.7 % (42.0-52.0); HEMOGLOBIN 8.4 g/dl (13.5-17.5); LYMPH # 0.6 10^3/uL (1.5-5.0); LYMPH % 4.1 % (24.0-44.0); MEAN CORPUSCULAR HEMOGLOBIN 28.9 pg (27.0-33.0); MEAN CORPUSCULAR HGB CONC 32.7 g/dl (32.0-36.5); MEAN CORPUSCULAR VOLUME 88.3 fl (80.0-96.0); MONO # 0.8 10^3/uL (0.0-0.8); MONO % 5.1 % (2.0-8.0); NEUTROPHILS # 13.4 10^3/uL (1.5-8.5); NEUTROPHILS % 89.5 % (36.0-66.0); PLATELET COUNT, AUTOMATED 189 10^3/uL (150-450); RED BLOOD COUNT 2.91 10^6/uL (4.30-6.10)
[2021-07-26 05:47] LABS: ALBUMIN 1.9 GM/DL (3.2-5.2); ALT/SGPT 14 U/L (12-78); BILIRUBIN,TOTAL 1.2 MG/DL (0.2-1.0); BLOOD UREA NITROGEN 23 MG/DL (7-18); CALCIUM LEVEL 8.4 MG/DL (8.5-10.1); CARBON DIOXIDE LEVEL 26 MEQ/L (21-32); CHLORIDE LEVEL 105 MEQ/L (98-107); GLOMERULAR FILTRATION RATE > 60.0 (>56); GLUCOSE, FASTING 175 MG/DL (70-100); MAGNESIUM LEVEL 2.3 MG/DL (1.8-2.4); POTASSIUM SERUM 3.8 MEQ/L (3.5-5.1); SODIUM LEVEL 137 MEQ/L (136-145); TOTAL PROTEIN 5.8 GM/DL (6.4-8.2)
[2021-07-26] MEDS: OXAZEPAM 10MG CAP PO SCH ×3 (06:03→21:45)
[2021-07-26] MEDS: SODIUM CHLORIDE 0.9% INJ 10 ML SYR IV SCH (06:04)
[2021-07-26] MEDS: HumaLOG INSULIN (NovoLOG) PER UNIT SC SCH ×4 (08:21→21:33)
[2021-07-26] MEDS: BARICITINIB 2MG TABLET (OLUMIANT) FOR EUA PO SCH (08:23)
[2021-07-26] MEDS: MULTIVITAMINS/MINERALS THERAP 1 TAB PO SCH (08:24)
[2021-07-26] MEDS: METOPROLOL TART 50 MG TAB PO SCH ×2 (08:25→21:35)
[2021-07-26] MEDS: THIAMINE 100 MG TAB PO SCH ×2 (08:26→21:34)
[2021-07-26] MEDS: APIXABAN 5 MG TAB (ELIQUIS) PO SCH ×2 (08:26→21:34)
[2021-07-26] MEDS: FOLIC ACID 1 MG TAB PO SCH (08:26)
[2021-07-26] MEDS: ENALAPRIL MALEATE 10 MG TAB PO SCH ×2 (08:26→21:34)
[2021-07-26] MEDS: dexameTHASONE 4 MG/ML 1ML VIAL (J1100 PER 1MG) IV SCH (08:27)
[2021-07-26] MEDS: PANTOPRAZOLE 40MG VIAL (C9113 PER 1) IV SCH (08:29)
[2021-07-26] MEDS: DOCUSATE SODIUM 100MG CAPSULE PO SCH ×2 (08:30→21:33)
[2021-07-26 11:07] LABS: IRON (FE) 39 UG/DL (65-175); PERCENT SATURATION 13.9 % (19.7-50.0); TOTAL IRON BINDING CAPACITY 281 UG/DL (250-450)
[2021-07-26] MEDS: AMITRIPTYLINE 50 MG TAB PO SCH (21:32)
[2021-07-27] VITALS (17 sets, daily range): BP systolic 124–164; BP diastolic 63–100
[2021-07-27] MEDS: CEFEPIME HCL 2 GM in D5W MINI-BAG PLUS 50 ML IV SCH ×3 (03:00→19:00)
[2021-07-27] MEDS: REMDESIVIR 100 MG in NS 250 ML IV SCH (04:31)
[2021-07-27 05:40] LABS: BASO % 0.1 % (0.0-1.0); EOS # 0.2 10^3/uL (0.0-0.5); EOS % 1.5 % (0.0-3.0); HEMOGLOBIN 8.7 g/dl (13.5-17.5); LYMPH # 0.9 10^3/uL (1.5-5.0); LYMPH % 6.1 % (24.0-44.0); MEAN CORPUSCULAR HEMOGLOBIN 27.9 pg (27.0-33.0); MEAN CORPUSCULAR HGB CONC 31.1 g/dl (32.0-36.5); MEAN CORPUSCULAR VOLUME 89.7 fl (80.0-96.0); MONO # 0.7 10^3/uL (0.0-0.8); NEUTROPHILS # 12.4 10^3/uL (1.5-8.5); NEUTROPHILS % 85.4 % (36.0-66.0); PLATELET COUNT, AUTOMATED 201 10^3/uL (150-450); RED BLOOD COUNT 3.12 10^6/uL (4.30-6.10); WHITE BLOOD COUNT 14.5 10^3/uL (4.0-10.0)
[2021-07-27] MEDS: SODIUM CHLORIDE 0.9% INJ 10 ML SYR IV SCH (06:04)
[2021-07-27] MEDS: OXAZEPAM 10MG CAP PO SCH ×3 (06:04→22:00)
[2021-07-27 06:18] LABS: ALBUMIN 1.9 GM/DL (3.2-5.2); ALT/SGPT 20 U/L (12-78); BILIRUBIN,TOTAL 0.5 MG/DL (0.2-1.0); BLOOD UREA NITROGEN 26 MG/DL (7-18); CALCIUM LEVEL 8.2 MG/DL (8.5-10.1); CARBON DIOXIDE LEVEL 27 MEQ/L (21-32); CHLORIDE LEVEL 107 MEQ/L (98-107); CREATININE FOR GFR 1.03 MG/DL (0.70-1.30); GLOMERULAR FILTRATION RATE > 60.0 (>56); GLUCOSE, FASTING 194 MG/DL (70-100); MAGNESIUM LEVEL 2.3 MG/DL (1.8-2.4); POTASSIUM SERUM 3.8 MEQ/L (3.5-5.1); SODIUM LEVEL 138 MEQ/L (136-145)
[2021-07-27] MEDS: PANTOPRAZOLE 40MG VIAL (C9113 PER 1) IV SCH (08:35)
[2021-07-27] MEDS: dexameTHASONE 4 MG/ML 1ML VIAL (J1100 PER 1MG) IV SCH (08:36)
[2021-07-27] MEDS: HumaLOG INSULIN (NovoLOG) PER UNIT SC SCH ×4 (08:37→21:00)
[2021-07-27] MEDS: BARICITINIB 2MG TABLET (OLUMIANT) FOR EUA PO SCH (08:38)
[2021-07-27] MEDS: DOCUSATE SODIUM 100MG CAPSULE PO SCH ×2 (08:39→20:27)
[2021-07-27] MEDS: MULTIVITAMINS/MINERALS THERAP 1 TAB PO SCH (08:39)
[2021-07-27] MEDS: APIXABAN 5 MG TAB (ELIQUIS) PO SCH ×2 (08:41→20:28)
[2021-07-27] MEDS: FOLIC ACID 1 MG TAB PO SCH (08:41)
[2021-07-27] MEDS: ENALAPRIL MALEATE 10 MG TAB PO SCH ×2 (08:41→20:28)
[2021-07-27] MEDS: THIAMINE 100 MG TAB PO SCH ×2 (08:42→20:27)
[2021-07-27] MEDS: METOPROLOL TART 50 MG TAB PO SCH (08:42)
[2021-07-27] MEDS: LORazepam 2 MG TAB PO PRN (08:54)
[2021-07-27] MEDS ORDERED: CETIRIZINE (ZyrTEC) 10 MG TAB PO PRN (14:40)
[2021-07-27] MEDS: METOPROLOL TART 25 MG TABLET PO SCH (20:26)
[2021-07-27] MEDS: AMITRIPTYLINE 50 MG TAB PO SCH (20:28)
[2021-07-28] VITALS (14 sets, daily range): BP systolic 89–149; BP diastolic 38–91
[2021-07-28] MEDS: LORazepam 2 MG TAB PO PRN (01:16)
[2021-07-28] MEDS: CEFEPIME HCL 2 GM in D5W MINI-BAG PLUS 50 ML IV SCH ×2 (03:35→11:00)
[2021-07-28] MEDS: REMDESIVIR 100 MG in NS 250 ML IV SCH (04:45)
[2021-07-28] MEDS: OXAZEPAM 10MG CAP PO SCH ×2 (05:30→14:00)
[2021-07-28] MEDS: SODIUM CHLORIDE 0.9% INJ 10 ML SYR IV SCH (05:31)
[2021-07-28 06:22] LABS: BASO % 0.1 % (0.0-1.0); EOS # 0.4 10^3/uL (0.0-0.5); EOS % 2.8 % (0.0-3.0); HEMATOCRIT 27.5 % (42.0-52.0); HEMOGLOBIN 8.7 g/dl (13.5-17.5); LYMPH # 0.9 10^3/uL (1.5-5.0); LYMPH % 5.9 % (24.0-44.0); MEAN CORPUSCULAR HEMOGLOBIN 28.3 pg (27.0-33.0); MEAN CORPUSCULAR HGB CONC 31.6 g/dl (32.0-36.5); MEAN CORPUSCULAR VOLUME 89.6 fl (80.0-96.0); MONO # 0.7 10^3/uL (0.0-0.8); MONO % 4.3 % (2.0-8.0); NEUTROPHILS # 13.4 10^3/uL (1.5-8.5); NEUTROPHILS % 85.4 % (36.0-66.0); PLATELET COUNT, AUTOMATED 217 10^3/uL (150-450); RED BLOOD COUNT 3.07 10^6/uL (4.30-6.10); WHITE BLOOD COUNT 15.7 10^3/uL (4.0-10.0)
[2021-07-28 07:32] LABS: ALBUMIN 1.9 GM/DL (3.2-5.2); ALT/SGPT 20 U/L (12-78); BILIRUBIN,TOTAL 0.6 MG/DL (0.2-1.0); BLOOD UREA NITROGEN 22 MG/DL (7-18); CALCIUM LEVEL 7.9 MG/DL (8.5-10.1); CARBON DIOXIDE LEVEL 23 MEQ/L (21-32); CHLORIDE LEVEL 107 MEQ/L (98-107); CREATININE FOR GFR 0.92 MG/DL (0.70-1.30); GLOMERULAR FILTRATION RATE > 60.0 (>56); GLUCOSE, FASTING 178 MG/DL (70-100); MAGNESIUM LEVEL 2.1 MG/DL (1.8-2.4); POTASSIUM SERUM 3.7 MEQ/L (3.5-5.1); SODIUM LEVEL 138 MEQ/L (136-145)
[2021-07-28] MEDS ORDERED: METOPROLOL 5 MG/5 ML VIAL As Ordered ONE (08:28)
[2021-07-28] MEDS ORDERED: METOPROLOL 5 MG/5 ML VIAL IV STA (08:30)
[2021-07-28] MEDS ORDERED: ETOMIDATE INJ 20MG/10ML VIAL As Ordered ONE (08:52)
[2021-07-28] MEDS ORDERED: NOREPINEPHRINE 4 MG/4 ML AMP As Ordered ONE (08:59)
[2021-07-28] MEDS: THIAMINE 100 MG TAB PO SCH (09:00)
[2021-07-28] MEDS ORDERED: PROPOFOL 1,000 MG/100 ML VIAL As Ordered ONE (09:00)
[2021-07-28] MEDS ORDERED: ETOMIDATE INJ 20MG/10ML VIAL IV ONE (09:00)
[2021-07-28] MEDS: DOCUSATE SODIUM 100MG CAPSULE PO SCH (09:00)
[2021-07-28] MEDS ORDERED: ROCURONIUM BROMIDE 50 MG/5 ML VIAL IV ONE (09:00)
[2021-07-28] MEDS ORDERED: propofoL 200 MG/20 ML VIAL IV ONE (09:00)
[2021-07-28] MEDS: MULTIVITAMINS/MINERALS THERAP 1 TAB PO SCH (09:00)
[2021-07-28] MEDS: dexameTHASONE 4 MG/ML 1ML VIAL (J1100 PER 1MG) IV SCH (09:00)
[2021-07-28] MEDS: FOLIC ACID 1 MG TAB PO SCH (09:00)
[2021-07-28] MEDS: METOPROLOL TART 25 MG TABLET PO SCH (09:00)
[2021-07-28] MEDS: BARICITINIB 2MG TABLET (OLUMIANT) FOR EUA PO SCH (09:00)
[2021-07-28] MEDS: ENALAPRIL MALEATE 10 MG TAB PO SCH (09:00)
[2021-07-28] MEDS: PANTOPRAZOLE 40MG VIAL (C9113 PER 1) IV SCH (09:00)
[2021-07-28] MEDS: HumaLOG INSULIN (NovoLOG) PER UNIT SC SCH ×2 (09:00→12:00)
[2021-07-28] MEDS: APIXABAN 5 MG TAB (ELIQUIS) PO SCH (09:00)
[2021-07-28 09:25] LABS: LDH LACTATE DEHYDROGENASE 940 U/L (87-241); NT-PRO BNP 14971 PG/ML (<125)
[2021-07-28] MEDS ORDERED: EPINEPHrine 1MG/10ML SYRINGE 1.5IN ONE (14:14)
[2021-07-28] MEDS ORDERED: SODIUM BICARBONATE 8.4% INJ 50MEQ 50 ML VIAL ONE (14:14)
[2021-07-28] MEDS ORDERED: MAGNESIUM SULFATE 1GM/2ML (8MEQ/2ML) VIAL ONE (14:14)
[2021-07-28] MEDS ORDERED: AMIODARONE 150MG/3ML INJ (J0282) ONE (14:14)
[2021-07-28] MEDS ORDERED: AMIODARONE HCL 150 MG/100 ML PREMIXED BAG (NEXTERONE) (J0282 PER 30MG) ONE (14:14)
== END 2021-07-28 14:15 | disposition expired | DRG 177 ==
LOC: M ED 19:19 → M ED INP 07-25 02:38 → M ICU 07-25 04:23
PROVIDERS: ADMIT Family Medicine; ATTEND Family Medicine
PROC: 3E0333Z Introduction of Anti-inflammatory into Peripheral Vein, Percutaneous Approach (ICD-10-PCS; 2021-07-25)
PROC: XW033E5 Introduction of Remdesivir Anti-infective into Peripheral Vein, Percutaneous Approach, New Technology Group 5 (ICD-10-PCS; 2021-07-25)
PROC: 5A09457 Assistance with Respiratory Ventilation, 24-96 Consecutive Hours, Continuous Positive Airway Pressure (ICD-10-PCS; 2021-07-25)
PROC: 0BH18EZ Insertion of Endotracheal Airway into Trachea, Via Natural or Artificial Opening Endoscopic (ICD-10-PCS; principal; 2021-07-28)
DX: U07.1 COVID-19 (principal); J96.01 Acute respiratory failure with hypoxia; J12.82 Pneumonia due to coronavirus disease 2019; J15.9 Unspecified bacterial pneumonia; E87.3 Alkalosis; F10.239 Alcohol dependence with withdrawal, unspecified; I50.9 Heart failure, unspecified; I11.0 Hypertensive heart disease with heart failure; I48.91 Unspecified atrial fibrillation; E11.65 Type 2 diabetes mellitus with hyperglycemia; E78.5 Hyperlipidemia, unspecified; Z79.01 Long term (current) use of anticoagulants; Z79.84 Long term (current) use of oral hypoglycemic drugs; Z79.899 Other long term (current) drug therapy; E66.01 Morbid (severe) obesity due to excess calories; G47.33 Obstructive sleep apnea (adult) (pediatric); I35.0 Nonrheumatic aortic (valve) stenosis; Z68.36 Body mass index [BMI] 36.0-36.9, adult